=== PATIENT | female | born 1985 | race Caucasian/White ===

== ENCOUNTER 2016-10-09 09:57 | Emergency (ER) | payer BC ==
--- NOTE | 2016-10-15 21:33 | ER ---
ADMIT: 10/09/2016 RM/LOC: ER [facility] MR#: [id number] [address] [id number] ISMAEL WHITLEY [address] [place] [address] Emergency Room Report SEX: F AGE: 31 : 1985 DATE: 10/09/2016 ADDENDUM: CHIEF COMPLAINT: Passed out. HISTORY OF PRESENT ILLNESS: This is a 31-year-old female, who has had a long history of stress and anxiety. It has been worse recently. She said she just felt very anxious. She was trying to get stuff done so she could go home. She passed out here in the hospital, so was brought the emergency room. EKG was done. It showed normal sinus rhythm at a rate of 82. No ST elevation or depression. No block. She feels okay to go home. I did give her Ativan here. She does not want any further workup. She said she will see Dr. Goodson this week. IMPRESSION: 1. Syncopal episode. 2. Anxiety. DISPOSITION: Stable at discharge and will follow up with him this week. SABI oBurne / Omid Hernandez MD / lauri JOB #: [id number] CC: Omid Hernandez MD, Attending Physician Jose Ramon Goodson MD, Family Physician
== END 2016-10-09 10:50 | disposition home or self-care (01) ==
LOC: ER 09:57
DX: R55 Syncope and collapse (principal); F41.9 Anxiety disorder, unspecified; Z79.899 Other long term (current) drug therapy

== ENCOUNTER → 2016-10-11 | Outpatient (CLI) | payer BC | END | disposition home or self-care (01) | LOC: PTH.S 13:55 | DX: R53.83 Other fatigue (principal); R07.9 Chest pain, unspecified; R06.02 Shortness of breath; F41.9 Anxiety disorder, unspecified ==

== ENCOUNTER → 2016-10-13 | Outpatient (CLI) | payer BC | END | disposition home or self-care (01) | LOC: CARD 08:28 | DX: R55 Syncope and collapse (principal) ==

== ENCOUNTER → 2016-10-19 | Outpatient (CLI) | payer BC ==
--- NOTE | ~2016-10-19 | ECH ---
Transthoracic Echocardiography Report (TTE) Demographics Patient Name ISMAEL WHITLEY Date of Study 10/19/2016 Patient Number [id number] Visit Number [id number] Date of 1985 Room Number Accession Number [id number] Gender Female Age 31 year(s) Referring Hamzah Albright Materials Branch Chief Joelle Martinez Physician RDCS Physician Interpreting Mayra Aly MD Advertising Material Distributor Physician Supervising Ordering Physician Hamzah Albright MD/MLP Nurse Stress Clinical Research Technician Conclusions Summary Technically good exam. The estimated left ventricular ejection fraction is 60%. No significant valvular abnormalities. Normal study. Procedure Type of Study TTE procedure:Echo Complete SF. Procedure Date Date: 10/19/2016 Start: 09:01 AM Technical Quality: Good visualization Indications:Syncope. Appropriate Use Criteria: 9 Height: 66 inches Weight: 145 pounds BSA: 1.74 m Rhythm: NSR HR: 72 bpm BP: 120/80 mmHg M-Mode/2D Measurements LV Diastolic Dimension: 4.21 cm LV Systolic Dimension: 2.77 cm LV Septum Diastolic: 0.68 cm LV PW Diastolic: 0.66 cm AO Root Dimension: 3.21 cm Cardiac Output: 3.22 l/min LA Dimension: 2.3 cm Cardiac Index: 1.85 l/min*m RV Diastolic Dimension: 2.9 cm LA volume index: 22 ml/m LVOT: 1.82 cm LVOT VTI: 17.2 cm RV Base: 3.1 cm LV Stroke volume: 44.72 ml RV Mid: 2 cm LV Stroke volume index: 25.7 ml/m TAPSE: 1.9 cm TDI-S': 12 cm/s Doppler Measurements AV Peak Velocity: 0.9 m/s MV Peak E-Wave: 0.75 m/s AV Peak Gradient: 3.24 mmHg MV Peak A-Wave: 0.4 m/s AV Mean Gradient: 1.68 mmHg MV E/A Ratio: 1.87 LVOT Peak Velocity: 0.77 m/s MV P1/2t: 59.3 msec AV Area (Continuity):2.4 cm MV Deceleration Time: 215.5 msec MV Area (PHT): 3.71 cm PV Peak Velocity: 0.71 m/s E' Septal Velocity: 0.12 m/s PV Peak Gradient: 2.04 mmHg E' Lateral Velocity: 0.15 m/s A' Septal Velocity: 0.08 m/s A' Lateral Velocity: 0.09 m/s RA Area: 11.58 cm Findings Left Ventricle Normal left ventricle size and function. Diastolic assessment reveals normal relaxation. Right Ventricle Normal right ventricle structure and function. Left Atrium Normal left atrial size. Right Atrium Normal right atrial size. Mitral Valve Normal mitral valve structure and function. Trivial mitral regurgitation by color Doppler. Aortic Valve Normal aortic valve structure and function. Tricuspid Valve Normal tricuspid valve structure and function. Trivial tricuspid regurgitation by color Doppler. Insufficient jet to calculate pulmonary pressures. Pulmonic Valve Normal pulmonic valve structure and function. Trivial pulmonic valve regurgitation by color Doppler. Pericardial Effusion No evidence of pericardial effusion. Miscellaneous Visualized portions of the aortic root and ascending aorta appear normal in size. Pleural Effusion No evidence of pleural effusion. Signature
== END | disposition home or self-care (01) ==
LOC: CARD 10-13 10:54 → RAD.S 08:13 → CARD 09:00
DX: R55 Syncope and collapse (principal); R07.9 Chest pain, unspecified